=== PATIENT | female | born 1940 | race Caucasian/White ===

== ENCOUNTER 2016-11-30 12:44 | Observation (INO) ==
[2016-11-30 13:23] LABS: MANUAL DIFF NEEDED? NO
--- NOTE | 2016-11-30 13:24 | PROVIDER DOCUMENTATION ---
HPI-Syncope/Dizziness - General Chief Complaint: Syncope Stated Complaint: SYNCOPE/HEAD INJURY Time Seen by Provider: 11/30/16 13:11 Allergies/Adverse Reactions: Patient Allergies Allergy/AdvReac Type Severity Reaction Status Date / Time No Known Allergies Allergy Verified 11/30/16 15:16 Home Medications: Home Medication List Medication Instructions Recorded Confirmed Last Taken Type Levothyroxine [Synthroid] 75 microgm PO DAILY 11/28/12 11/30/16 11/30/16 History Simvastatin [Zocor] 20 mg PO DAILY 11/28/12 11/30/16 11/30/16 History Vitamin E 400 unit PO DAILY 11/28/12 11/30/16 11/30/16 08:00 History Metformin E.r. [Glucophage Xr] 1,000 mg PO BID #0 tablet 12/21/12 11/30/1611/30 08:00 Rx - History of Present Illness-Syncope/Dizzy Nature of Presenting Problem: A 76 y/o F presented after she had syncopal episode at bank and felt backward and hit her head and has small minor laceration, regained conciousness and here for evalaution, denies symptoms prior to fall and no CP/SOB/n/v/d/medina/abdominal pain on HTN meds Prior Episodes: reports: no prior history, single episode today Onset/Duration: reports: 1 hour ago Symptoms prior to episode: reports: none Context: reports: felt faint Loss of Consciousness: brief (seconds) Location of injury. (If syncope resulted in an injury.): reports: head Current Symptoms: reports: none/feels normal Recently Seen Here or By Another Healthcare Provider: No - Dizziness Severity in ED: reports: mild Dizziness Related Current/Associated Symptoms: reports: none/feels normal Any recent trauma/injury?: reports: none Modifying Factors: improves with: nothing Patient usually:: reports: walks without assistance Review of Systems - Adult - REVIEW OF SYSTEMS - ADULT Constitutional: reports: no symptoms reported Eyes: reports: no symptoms reported Ears, Nose, Mouth & Throat: reports: no symptoms reported Cardiovascular: reports: no symptoms reported Respiratory: reports: no symptoms reported Gastrointestinal: reports: no symptoms reported Genitourinary: reports: no symptoms reported Musculoskeletal: reports: no symptoms reported Integumentary: reports: no symptoms reported Neurological: reports: no symptoms reported Psychiatric: reports: no symptoms reported Endocrine: reports: no symptoms reported Hematologic/Lymphatic: reports: no symptoms reported Allergic/Immunologic: reports: no symptoms reported All Other Systems: Reviewed and Negative Past History - Adult - PAST MEDICAL HISTORY-ADULT Review of Records: reports: Old Records Reviewed, Nursing Assessment Review, Medications Reviewed, Social history reviewed & non-contributory. Major Childhood Illnesses: reports: denies history Cardiovascular: reports: denies history Respiratory: reports: denies history Gastrointestinal: reports: denies history Obstetrical/Gynecological: reports: denies history Genitourinary: reports: denies history Musculoskeletal: reports: denies history Neurological: reports: denies history Endocrine/Immune: reports: denies history Other Conditions: reports: denies history - FAMILY HISTORY Family History: reviewed, not pertinent Physical Exam-General - PHYSICAL EXAM-ADULT Initial Vital Signs Reviewed: Yes - CONSTITUTIONAL General Appearance: appears well, no apparent distress - EYES Eyes: PERRL/EOMI, pink conjunctivae - HEAD, EARS, NOSE, MOUTH & THROAT HENMT: moist mucous membranes, normal ENT inspection, TMs normal, pharynx normal , other (1 inch superficial laceration in occipital region) - NECK Neck: non-tender - RESPIRATORY Respiratory: chest non-tender, lungs clear, normal breath sounds, no pleuratic chest pain, no respiratory distress, no accessory muscle use - CARDIOVASCULAR Cardiovascular: normal peripheral pulses, regular rate, rhythm, no edema, no gallop, no JVD, no murmur - GASTROINTESTINAL (ABDOMEN) Abdominal Exam: normal bowel sounds, non tender, soft, no organomegaly - GENITOURINARY Female Genitalia/Pelvic Exam: deferred - MUSCULOSKELETAL Back Exam: normal inspection, no CVA tenderness, no vertebral tenderness Extremity: normal range of motion, non-tender - SKIN Integumentary: normal color, normal turgor - NEUROLOGIC Neurologic: liner helper II-XII nml as tested, grossly normal, no motor/sensory deficits - PSYCHIATRIC Psych/Mental Status: normal mood/affect Progress - PLAN OF CARE/RESULTS Progress/Plan/Lab Results: Laboratory Tests 11/30/16 11/30/16 11/30/16 13:11 13:11 13:11 WBC 10.09 RBC 3.92 L Hgb 12.0 Hct 36.4 L MCV 92.9 MCH 30.6 MCHC 33.0 RDW Std Deviation 13.0 Plt Count 261 MPV 11.0 H Immature Gran % (Auto) 0.0 Neut % (Auto) 74.4 Lymph % (Auto) 14.0 L Fallon % (Auto) 9.0 Eos % (Auto) 2.3 Baso % (Auto) 0.3 Immature Gran # (Auto) 0.00 Neut # (Auto) 7.51 H Lymph # (Auto) 1.41 Fallon # (Auto) 0.91 H Eos # (Auto) 0.23 Baso # (Auto) 0.03 Sodium 133 L Potassium 4.0 Chloride 93 L Carbon Dioxide 24 L Anion Gap 16 BUN 19 Creatinine 1.3 H Estimated GFR/1.73 m2 40 BUN/Creatinine Ratio 15 Glucose 113 H Calculated Osmolality 269 Calcium 8.9 Total Bilirubin 0.89 AST 20 ALT 8 L Alkaline Phosphatase 44 Creatine Kinase 46 Troponin T < 0.010 Total Protein 6.9 Albumin 4.1 Globulin 2.8 Albumin/Globulin Ratio 1.5 Urine Source Urine Color Urine Turbidity Urine pH Ur Specific [place] Urine Protein Ur Glucose (Stick) Ur Ketones (Stick) Urine Blood Urine Nitrite Urine Bilirubin Urobilinogen Dipstick Urine Leukocytes Urine WBC (Auto) Urine RBC (Auto) U Epithel Cells (Auto) Urine Bacteria (Auto) 11/30/16 16:40 WBC RBC Hgb Hct MCV MCH MCHC RDW Std Deviation Plt Count MPV Immature Gran % (Auto) Neut % (Auto) Lymph % (Auto) Fallon % (Auto) Eos % (Auto) Baso % (Auto) Immature Gran # (Auto) Neut # (Auto) Lymph # (Auto) Fallon # (Auto) Eos # (Auto) Baso # (Auto) Sodium Potassium Chloride Carbon Dioxide Anion Gap BUN Creatinine Estimated GFR/1.73 m2 BUN/Creatinine Ratio Glucose Calculated Osmolality Calcium Total Bilirubin AST ALT Alkaline Phosphatase Creatine Kinase Troponin T Total Protein Albumin Globulin Albumin/Globulin Ratio Urine Source CLEAN CATCH Urine Color YELLOW Urine Turbidity CLEAR Urine pH 5.5 Ur Specific [place] 1.009 Urine Protein NEGATIVE Ur Glucose (Stick) NEGATIVE Ur Ketones (Stick) TRACE A Urine Blood SMALL A Urine Nitrite NEGATIVE Urine Bilirubin NEGATIVE Urobilinogen Dipstick NORMAL Urine Leukocytes NEGATIVE Urine WBC (Auto) <10 Urine RBC (Auto) <10 U Epithel Cells (Auto) <10 Urine Bacteria (Auto) NEGATIVE Orders Category Date Time Status ED: Orthostatic Vital Signs (E as directed Care 11/30/16 13:18 Active Transfer to [facility] ORDERED Care 11/30/16 17:06 Active HEAD/C-SPINE W/O CONTRAST [CT] Stat Exams 11/30/16 13:18 Completed CBC WITH ELECTRONIC DIFF [HEME] Stat Lab 11/30/16 13:11 Completed CK PROFILE [SP CHEM] Stat Lab 11/30/16 13:11 Completed COMPREHENSIVE METABOLIC PANEL [CHEM] Stat Lab 11/30/16 13:11 Completed TROPONIN T Stat Lab 11/30/16 13:11 Completed URINALYSIS [URINALYSIS] Stat Lab 11/30/16 16:40 Completed 0.9% Sodium Chloride Inj [Ns] 1,000 ml Med 11/30/16 15:02 Discontinued IV 999 mls/hr EKG [EKG] Stat Ther 11/30/16 13:01 Draft Vital Signs Temp Pulse Pulse Pulse Pulse Resp BP 11/30/16 16:01 82 86 79 11/30/16 12:48 98.1 F 80 20 146/62 BP BP BP Pulse Ox 11/30/16 16:01 128/57 108/37 135/51 11/30/16 12:48 100 No Known Allergies Allergy (Verified 11/30/16 15:16) Levothyroxine [Synthroid] 75 microgm PO DAILY 11/28/12 Simvastatin [Zocor] 20 mg PO DAILY 11/28/12 Vitamin E 400 unit PO DAILY 11/28/12 Metformin E.r. [Glucophage Xr] 1,000 mg PO BID #0 tablet 12/21/12 Laboratory 11/30/16 11/30/16 11/30/16 16:40 13:11 13:11 WBC RBC Hgb Hct MCV MCH MCHC RDW Std Deviation Plt Count MPV Immature Gran % (Auto) Neut % (Auto) Lymph % (Auto) Fallon % (Auto) Eos % (Auto) Baso % (Auto) Immature Gran # (Auto) Neut # (Auto) Lymph # (Auto) [place] # (Auto) Eos # (Auto) Baso # (Auto) Sodium 133 L Potassium 4.0 Chloride 93 L Carbon Dioxide 24 L Anion Gap 16 BUN 19 Creatinine 1.3 H Estimated GFR/1.73 m2 40 BUN/Creatinine Ratio 15 Glucose 113 H Calculated Osmolality 269 Calcium 8.9 Total Bilirubin 0.89 AST 20 ALT 8 L Alkaline Phosphatase 44 Creatine Kinase 46 Troponin T < 0.010 Total Protein 6.9 Albumin 4.1 Globulin 2.8 Albumin/Globulin Ratio 1.5 Urine Source CLEAN CATCH Urine Color YELLOW Urine Turbidity CLEAR Urine pH 5.5 Ur Specific [place] 1.009 Urine Protein NEGATIVE Ur Glucose (Stick) NEGATIVE Ur Ketones (Stick) TRACE A Urine Blood SMALL A Urine Nitrite NEGATIVE Urine Bilirubin NEGATIVE Urobilinogen Dipstick NORMAL Urine Leukocytes NEGATIVE Urine WBC (Auto) <10 Urine RBC (Auto) <10 U Epithel Cells (Auto) <10 Urine Bacteria (Auto) NEGATIVE 11/30/16 13:11 WBC 10.09 RBC 3.92 L Hgb 12.0 Hct 36.4 L MCV 92.9 MCH 30.6 MCHC 33.0 RDW Std Deviation 13.0 Plt Count 261 MPV 11.0 H Immature Gran % (Auto) 0.0 Neut % (Auto) 74.4 Lymph % (Auto) 14.0 L [place] % (Auto) 9.0 Eos % (Auto) 2.3 Baso % (Auto) 0.3 Immature Gran # (Auto) 0.00 Neut # (Auto) 7.51 H Lymph # (Auto) 1.41 [place] # (Auto) 0.91 H Eos # (Auto) 0.23 Baso # (Auto) 0.03 Sodium Potassium Chloride Carbon Dioxide Anion Gap BUN Creatinine Estimated GFR/1.73 m2 BUN/Creatinine Ratio Glucose Calculated Osmolality Calcium Total Bilirubin AST ALT Alkaline Phosphatase Creatine Kinase Troponin T Total Protein Albumin Globulin Albumin/Globulin Ratio Urine Source Urine Color Urine Turbidity Urine pH Ur Specific [place] Urine Protein Ur Glucose (Stick) Ur Ketones (Stick) Urine Blood Urine Nitrite Urine Bilirubin Urobilinogen Dipstick Urine Leukocytes Urine WBC (Auto) Urine RBC (Auto) U Epithel Cells (Auto) Urine Bacteria (Auto) - EKG 1 Time of EKG reading by physician:: 13:26 [place]: normal QRS: normal HI Interval: normal ST Wave: non-specific ST changes Prior EKG Comparison: changes noted (non) - CT/MRI 1 CT Study: Cervical Spine, Head Impression: Normal, See EMR Report - CONSULTS/PCP/HOSPITALIST Notification #1 *Consult/PCP/Hospitalist*: Dr Merlos Time Discussed: 17:08 Consult Disposition: Admit (to [facility]) Departure - Departure Time of Disposition Order: 17:08 DIAGNOSIS: Unstable angina Syncope Qualifiers: Syncope type: unspecified Qualified Code(s): R55 - Syncope and collapse Disposition: ADMITTED INPATIENT 09 Certified Medical Emergency: Emergent Condition: Fair
[2016-11-30 13:26] LABS: BASO% 0.3 % (0.0-0.8); EOS# 0.23 X1000 (0.0-0.7); EOS% 2.3 % (0.0-10.0); HEMATOCRIT 36.4 % (37.0-47.0); LYMPH# 1.41 X1000 (1.2-3.4); MCH 30.6 PG (27-31); MCV 92.9 FL (81-99); MONO# 0.91 X1000 (0.11-0.59); NEUT% 74.4 % (42.2-75.2); PLT 261 X1000 (130-400); RBC 3.92 XMIL (4.2-5.4)
--- NOTE | 2016-11-30 13:40 | EKG Report ---
Test Performed on : 11/30/2016 1:04:35 PM Test Reason : syncope Blood Pressure : / mmHG Vent. Rate : 082 BPM Atrial Rate : 082 BPM P-R Int : 128 ms QRS Dur : 076 ms QT Int : 394 ms P-R-T Axes : 111 008 063 degrees QTc Int : 460 ms Normal sinus rhythm. Low voltage QRS Nonspecific T wave abnormality Abnormal ECG When compared with ECG of 28-NOV-2012 02:34, premature ventricular complexes. are no longer present Nonspecific T wave abnormality now evident in Lateral leads Unconfirmed Result
[2016-11-30 13:45] LABS: ALBUMIN 4.1 g/dL (3.5-5.0); CALCIUM 8.9 mg/dL (8.8-10.2); TOTAL BILIRUBIN 0.89 mg/dL (0.20-1.00); TOTAL PROTEIN 6.9 g/dL (6.3-8.3)
--- NOTE | 2016-11-30 14:21 | Diag Imaging Result Document ---
PROCEDURE NAME: HEAD/C-SPINE W/O CONTRAST - 11/30/2016 CT BRAIN AND CERVICAL SPINE WITHOUT CONTRAST: FINDINGS: No parenchymal hemorrhage. No epidural or subdural hematoma. No subarachnoid hemorrhage. No skull fracture. No mass identified on this noncontrasted exam. No hydrocephalus. No sinus opacification. IMPRESSION: No hemorrhage. No injury. CT CERVICAL SPINE WITHOUT CONTRAST: FINDINGS: There is good alignment to the cervical spine. There are mild degenerative bone spurs at C6-7. No precervical soft tissue swelling. No subluxation. No fracture. IMPRESSION: No acute bony injury. A preliminary report was given at 2:08 p.m.
[2016-11-30] MEDS ORDERED: NS 1,000 ML IV ONE (15:02)
[2016-11-30 16:54] LABS: URINE MICRO REVIEW NEEDED? NO; URINE SOURCE CLEAN CATCH
[2016-11-30 17:02] LABS: BILIRUBIN URINE NEGATIVE (NEGATIVE); BLOOD URINE SMALL (NEGATIVE); COLOR YELLOW; GLUCOSE URINE NEGATIVE (NEGATIVE); LEUKOCYTES URINE NEGATIVE (NEGATIVE); NITRITE URINE NEGATIVE (NEGATIVE); PH URINE 5.5; PROTEIN URINE NEGATIVE (NEGATIVE); SP GRAVITY URINE 1.009; TURBIDITY URINE CLEAR (CLEAR); UR EPITHELIAL CELLS <10 /HPF (<10); URINE BACTERIA NEGATIVE /HPF; URINE RBC <10 /HPF (<10); URINE WBC <10 /HPF (<10); UROBILINOGEN URINE NORMAL (NORMAL)
[2016-11-30] MEDS: NS 1,000 ML IV SCH (21:05)
[2016-11-30] MEDS: GLUCOPHAGE XR PO SCH (21:39)
--- NOTE | 2016-11-30 22:00 | EKG Report ---
Test Performed on : 11/30/2016 9:38:48 PM Test Reason : re-check; angina Blood Pressure : / mmHG Vent. Rate : 084 BPM Atrial Rate : 084 BPM P-R Int : 150 ms QRS Dur : 082 ms QT Int : 376 ms P-R-T Axes : 057 021 035 degrees QTc Int : 444 ms Sinus rhythm. with occasional premature ventricular complexes. Low voltage QRS Borderline ECG When compared with ECG of 30-NOV-2016 13:04, (Unconfirmed) premature ventricular complexes. are now present Nonspecific T wave abnormality no longer evident in Inferior leads Unconfirmed Result
[2016-12-01] MEDS ORDERED: SYNTHROID PO SCH (09:00)
[2016-12-01] MEDS ORDERED: ZOCOR PO SCH (09:00)
[2016-12-01] MEDS: NS 1,000 ML IV SCH ×2 (09:41→16:30)
[2016-12-01] MEDS: VITAMIN E PO SCH (09:43)
[2016-12-01] MEDS: GLUCOPHAGE XR PO SCH ×2 (09:43→20:06)
[2016-12-01] MEDS ORDERED: XANAX PO ONE (17:20)
[2016-12-01] MEDS ORDERED: XANAX PO PRN (23:00)
[2016-12-02] MEDS: NS 1,000 ML IV SCH (04:11)
[2016-12-02] MEDS ORDERED: SYNTHROID PO SCH (07:15)
[2016-12-02] MEDS ORDERED: GLUCOPHAGE XR PO SCH (08:00)
[2016-12-02] MEDS: VITAMIN E PO SCH (08:03)
--- NOTE | 2016-12-02 15:11 | Diag Imaging Result Document ---
PROCEDURE NAME: MYOCARDIAL PERF SCAN, STR/REST - 12/02/2016 TEST: Myocardial perfusion scan result. INDICATION FOR THE STUDY: Syncope. PROCEDURES PERFORMED: 1. One-day stress rest myocardial perfusion imaging. 2. George protocol stress (results dictated separately by primary physician). PROCEDURE IN DETAIL: Ms. Kilgore was brought to the nuclear laboratory and had a resting study with injection of 12.2 mCi of technetium-99m sestamibi with usual imaging protocol utilized. She subsequently was brought back and had a George protocol stress. At peak stress, was injected with 33.7 mCi of technetium-99m sestamibi with usual imaging protocol utilized. FINDINGS: 1. No evidence of abnormal extracardiac uptake. 2. TID ratio 0.91. 3. Perfusion imaging demonstrates a small sized mild intensity fixed defect located in the apex. There does not appear to be any reversibility consistent with ischemia. 4. Normal ejection fraction of 76%. End-diastolic volume 85, end-systolic volume of 20 and normal wall motion.
[2016-12-02 16:00] VITALS: BP 132/50
[2016-12-02] MEDS ORDERED: ZOCOR PO SCH (21:00)
--- NOTE | 2016-12-28 21:48 | HISTORY AND PHYSICAL ---
HISTORY OF PRESENT ILLNESS: Penny Kilgore was admitted 12/10 after presenting to the emergency room stating that she had a syncopal attack while standing in line at the bank. Unfortunately there was nobody behind her, she fell backwards and hit her head. Has a small minor laceration, regained consciousness and here now in the ER for an evaluation. She denies symptoms prior to the fall, particularly denies chest pain, shortness of breath, nausea, vomiting, headache, belly pain. She has a history of hypertension. This happened about an hour prior to presenting to the ER. She said she felt faint walking in there and began feeling somewhat lightheaded before she fell. ALLERGIES: She has no allergies. MEDICATIONS: Synthroid 75 mcg. Zocor 20. Vitamin E 400 units daily. Metformin extended release 1000 mg twice a day. PAST MEDICAL HISTORY: She has no history of ischemic heart disease. She has only had the thyroid replacement therapy. REVIEW OF SYSTEMS: Constitutional: She denies any preceding fever, chills, night sweats, sweats, significant weight gain or weight loss. Eyes: No change in her visual field. No cataracts. No field cuts. Ears, nose, eyes and throat: No pharyngitis, otitis or sinusitis. Cardiovascular: She denies any history of any preceding palpitations. No chest pain, arm pain or jaw pain. No tachy or Tyree palpitations. Respiratory: She denies any shortness of breath or wheezing. Gastrointestinal: No nausea, vomiting, diarrhea, constipation, belly pain, prior to her passing out. Genitourinary: No dysuria, hematuria, polyuria, or pyuria. Musculoskeletal: No joint aches, muscle aches. Skin: No rash or lesions identified. Neurological: No preceding visual field scintillations or strange odors. No seizure activity. No headache. No dysarthria. Never had a TIA. Psychiatric: Mild history of dementia we suspect. Endocrine: No polyuria, polydipsia, heat or cold intolerance. Hematological: No clotting or bleeding disorder. Allergies: No asthma, eczema or hay fever. DATABASE INCLUDES THE FOLLOWING: She had a white count of 10,000, hematocrit of 36.4, platelet count of 261,000. Normal differential, potassium sodium 133, potassium 4, chloride 93, CO2 24, BUN 19, creatinine 1.3. GFR 40. Glucose 113, calcium 8.9, bilirubin 0.89. AST 20, ALT 8, alkaline phosphatase 44, CK 46, troponin less than 0.01. Total protein 6.9, albumin 4.1, globulin 2.8, urinalysis specific gravity, small amount of blood, otherwise negative. In the ER, she had a CT of the cervical spine and head that was negative. She had an EKG which was nonspecific ST-segment changes. She was admitted to the hospital for syncope and collapse with a history of mild dementia on thyroid, dyslipidemia and diabetes. PHYSICAL EXAMINATION: VITAL SIGNS: At the time of admission, her blood pressure was 146/62, pulse was 80, respiratory 28, temperature was 98.1 degrees, O2 saturation was 100. HEENT: Head was normocephalic. Eyes were PERRLA. EOMs intact. Sclerae clear. Fundi were benign. Nares patent. Oropharynx negative. NECK: Supple. Bounding carotids without thyromegaly. She had a contusion on the back of her head. Midline trachea. CHEST: Clear bilaterally. CARDIOVASCULAR: Regular rhythm rate. No murmurs, gallops, clicks, or rubs. ABDOMEN: Soft, but without hepatosplenomegaly. No CVA tenderness. EXTREMITIES: Negative for clubbing, cyanosis, or edema. ASSESSMENT AND PLAN: She was admitted for syncope and collapse. History of diabetes. History of dyslipidemia and history of thyroid replacement.
--- NOTE | 2016-12-29 06:52 | DISCHARGE SUMMARY ---
ADMISSION DATE: 11/30/2016 DISCHARGE DATE: 12/02/2016 HISTORY: A 76-year-old female who has a history of dyslipidemia and diabetes treated with metformin and thyroid hormone replacement who while standing in line at the bank felt lightheaded and subsequently fell backwards hitting her head. No loss of consciousness but had a laceration and maceration on the back of her head. Her database here included the following imaging. She had a head and cervical spine film. The head showed no hemorrhages and no injury. The CT of the spine normal bony structures and no bony injury. She had a myocardial perfusion scan done on 12/02 and is in part working up her syncope. The test revealed no evidence of abnormal extra cardiac uptake. Normal ejection fraction of 76%. End-diastolic volume 85 and systolic volume 20. Normal wall motion. Perfusion images demonstrate a small size mild intensity fixed defect located in the apex. There does not appear to be any reversibility consistent with ischemia. Her EKGs showed a normal sinus rhythm, low voltage, and nonspecific T-wave abnormalities. Followup EKG showed no evolution of those findings. Laboratory Data: Her blood sugars were monitored and all within the 100s. Urinalysis was negative for infection and tested positive for a small amount of blood with less than 10 RBCs. During the hospital stay, she had a noticeable orthostatic component to her blood pressure with her supine reading 67 pulse. 117/42 blood pressure. Her standing blood pressure was 120/59, pulse 83. She seemed during this hospitalization somewhat confused. She normally drives herself to the office and seems appropriate, but clearly she was a bit off in a strange environment, and might be foretelling of some dementia features. She was discharged. We will follow her up in the office. She was discharged with following diagnoses. DISCHARGE DIAGNOSES: 1. Syncopal episode. 2. Orthostatic vital signs. 3. Closed head trauma. 4. Thyroid hormone replacement. 5. Type 2 diabetes. 6. Dyslipidemia.
== END 2016-12-02 17:00 | disposition home or self-care (01) ==
LOC: ED 12:44 → P.MEDSURG 18:44
PROVIDERS: ADMIT Internal Medicine; ATTEND Internal Medicine
DX: R55 Syncope and collapse (principal); E11.9 Type 2 diabetes mellitus without complications; E78.5 Hyperlipidemia, unspecified; E07.9 Disorder of thyroid, unspecified; S01.01XA Laceration without foreign body of scalp, initial encounter; Z79.899 Other long term (current) drug therapy; Z79.84 Long term (current) use of oral hypoglycemic drugs; W19.XXXA Unspecified fall, initial encounter
CPT/HCPCS: 36415; 70450; 72125; 78452; 80053; 81001; 82550; 82948; 84484; 85025; 93005; 93017; 96360; 96361; A9500; G0378; J7030

== ENCOUNTER 2017-01-11 17:19 | Emergency (ER) ==
[2017-01-11] MEDS ORDERED: ASPIRIN PO STA (17:31)
[2017-01-11] MEDS ORDERED: NITROGLYCERIN SL PRN (17:31)
[2017-01-11 17:50] LABS: MANUAL DIFF NEEDED? NO
[2017-01-11 18:00] LABS: BASO% 0.4 % (0.0-0.8); EOS# 0.21 X1000 (0.0-0.7); EOS% 2.2 % (0.0-10.0); HEMATOCRIT 34.6 % (37.0-47.0); HEMOGLOBIN 11.4 g/dL (12.0-16.0); IMM GRAN# 0.02 X1000 (0.0-0.04); IMM GRAN% 0.2 % (0.0-0.5); LYMPH# 3.14 X1000 (1.2-3.4); LYMPH% 33.1 % (20.5-51.1); MCHC 32.9 g/dL (33-37); MONO# 0.84 X1000 (0.11-0.59); MONO% 8.8 % (1.7-9.3); MPV 10.8 FL (7.4-10.4); NEUT% 55.3 % (42.2-75.2); PLT 292 X1000 (130-400); RBC 3.68 XMIL (4.2-5.4)
[2017-01-11 18:09] LABS: INR 1.04; PTT 24.7 Seconds (22.0-36.0)
--- NOTE | 2017-01-11 18:28 | PROVIDER DOCUMENTATION ---
HPI-Chest Pain <Sara Hernández - Last Filed: 01/11/17 18:44> - General Source: patient - History of Present Illness-CP Location: reports: epigastric Chest Pain Radiation: reports: no radiation Quality of Pain: reports: sharp Severity in ED: mild Onset/Duration: 1 hour ago Timing: gone now, intermittent Context/Activities at Onset: denies: light activity, moderate activity, vigorous activity, recent emotional stress, recent physical stress, recent trauma history, possible bad food, cold exposure, eating, out of country travel , rest, sleep <Gina Foss - Last Filed: 01/11/17 19:28> - General Chief Complaint: Chest Pain Stated Complaint: CHEST PAIN Time Seen by Provider: 01/11/17 18:22 Allergies/Adverse Reactions: Patient Allergies Allergy/AdvReac Type Severity Reaction Status Date / Time No Known Allergies Allergy Verified 12/14/16 14:40 Home Medications: Home Medication List Medication Instructions Recorded Confirmed Last Taken Type Levothyroxine [Synthroid] 75 microgm PO DAILY 11/28/12 12/14/16 12/14/16 History Simvastatin [Zocor] 20 mg PO DAILY 11/28/12 12/14/16 12/14/16 History Vitamin E 400 unit PO DAILY 11/28/12 12/14/16 12/13/16 History Metformin E.r. [Glucophage Xr] 1,000 mg PO BID #0 tablet 12/21/12 12/14/1612/14 Rx Valsartan/Hydrochlorothiazide 1 each PO DAILY #0 12/02/16 12/14/16 12/14/16 Rx [Valsartan-Hctz 160-12.5 mg Tab] Nitrofurantoin Kendall/Macrocryst 100 mg PO BID #20 capsule 12/14/16 Unknown Rx [Macrobid] - History of Present Illness-CP Nature of Presenting Problem: 76 y/o WF c/o substernal chest pain that has been intermittent. States pain was just 3-4 small jolts of pain. Not currently having them. Denies sob. Denies history of heart disease- had heart cath and stress test "not long ago." Does not remember when she had it. States she has been having a lot of family problems lately and it could be related to anxiety. Denies cough, fever. Had stress test done in November of this year which was unremarkable; this was while she was hospitalized for syncopal episode. Denies leg pain recently ( Gina Foss) Review of Systems - Adult - REVIEW OF SYSTEMS - ADULT Constitutional: reports: no symptoms reported. denies: chills, fever, fatique Eyes: reports: no symptoms reported. denies: decreased vision, blurred vision, double vision, eye pain Ears, Nose, Mouth & Throat: reports: no symptoms reported. denies: ear pain, nose pain, throat pain Cardiovascular: reports: see HPI, chest pain. denies: irregular heart rate, palpitations Respiratory: reports: no symptoms reported. denies: cough, shortness of breath , wheezing Gastrointestinal: reports: no symptoms reported. denies: abdominal pain, diarrhea, nausea, vomiting Genitourinary: reports: no symptoms reported. denies: dysuria, discharge, frequency, incontinence Musculoskeletal: reports: no symptoms reported. denies: muscle aches Integumentary: reports: no symptoms reported Neurological: reports: no symptoms reported. denies: dizziness/vertigo, headache/migraines Psychiatric: reports: no symptoms reported Endocrine: reports: no symptoms reported Hematologic/Lymphatic: reports: no symptoms reported Allergic/Immunologic: reports: no symptoms reported All Other Systems: Reviewed and Negative <Gina Foss - Last Filed: 01/11/17 19:28> Past History - Adult - PAST MEDICAL HISTORY-ADULT Review of Records: reports: Old Records Reviewed, Nursing Assessment Review, Medications Reviewed Major Childhood Illnesses: reports: denies history Cardiovascular: reports: HTN, hyperlipidemia Respiratory: reports: denies history Gastrointestinal: reports: GERD Obstetrical/Gynecological: reports: denies history Genitourinary: reports: denies history Musculoskeletal: reports: denies history Neurological: reports: denies history Endocrine/Immune: reports: Diabetes, thyroid disorder Other Conditions: reports: denies history - IMMUNIZATION STATUS Childhood Immunizations: See Nurse Assessment Flu Vaccine: See Nurse Assessment - FAMILY HISTORY Family History: reviewed, not pertinent - SOCIAL HISTORY Smoking: denies Substance Use: none/never Alcohol Use Frequency: never <Gina Foss - Last Filed: 01/11/17 19:28> Physical Exam-General - PHYSICAL EXAM-ADULT Initial Vital Signs Reviewed: Yes - CONSTITUTIONAL General Appearance: appears well, alert, no apparent distress - EYES Eyes: PERRL/EOMI, pink conjunctivae - HEAD, EARS, NOSE, MOUTH & THROAT HENMT: normocephalic/atraumatic, moist mucous membranes - NECK Neck: non-tender, full range of motion, supple, normal inspection. negative: lymphadenopathy - RESPIRATORY Respiratory: chest non-tender, lungs clear, normal breath sounds, no pleuratic chest pain, no respiratory distress, no accessory muscle use. negative: respiratory distress, decreased breath sounds, accessory muscle use, crackles, rales, rhonchi, wheezing - CARDIOVASCULAR Cardiovascular: normal peripheral pulses, regular rate, rhythm, no edema, no gallop, no murmur - GASTROINTESTINAL (ABDOMEN) Abdominal Exam: normal bowel sounds, non tender, soft, no organomegaly, no pulsatile mass. negative: abdominal bruit, abnormal bowel sounds, distended, guarding, rigid, rebound, tenderness - MUSCULOSKELETAL Extremity: normal range of motion, non-tender, normal gait - SKIN Integumentary: normal color, normal turgor, warm/dry - NEUROLOGIC Neurologic: grossly normal, no motor/sensory deficits - PSYCHIATRIC Psych/Mental Status: normal mood/affect, normal thought content, normal thought process, oriented x 3 <Gina Foss - Last Filed: 01/11/17 19:28> Progress - EKG 1 Time of EKG reading by physician:: 17:26 EKG Read and Signed by:: Antonio Travis EKG Interpretation (*Must complete 3 of following elements*): Normal Rate: 82 Rhythm: NSR Greenback: normal <Sara Hernández - Last Filed: 01/11/17 18:44> <Gina Foss - Last Filed: 01/11/17 19:28> - PLAN OF CARE/RESULTS Progress/Plan/Lab Results: Vital Signs Temp Pulse Resp BP Pulse Ox 01/11/17 17:29 98.0 F 85 20 149/62 100 No Known Allergies Allergy (Verified 12/14/16 14:40) Levothyroxine [Synthroid] 75 microgm PO DAILY 11/28/12 Simvastatin [Zocor] 20 mg PO DAILY 11/28/12 Vitamin E 400 unit PO DAILY 11/28/12 Metformin E.r. [Glucophage Xr] 1,000 mg PO BID #0 tablet 12/21/12 Valsartan/Hydrochlorothiazide [Valsartan-Hctz 160-12.5 mg Tab] 1 each PO DAILY # 0 12/02/16 Nitrofurantoin Kendall/Macrocryst [Macrobid] 100 mg PO BID #20 capsule 12/14/16 Laboratory 01/11/17 01/11/17 01/11/17 17:35 17:35 17:35 WBC RBC Hgb Hct MCV MCH MCHC RDW Std Deviation Plt Count MPV Immature Gran % (Auto) Neut % (Auto) Lymph % (Auto) Kendall % (Auto) Eos % (Auto) Baso % (Auto) Immature Gran # (Auto) Neut # (Auto) Lymph # (Auto) Kendall # (Auto) Eos # (Auto) Baso # (Auto) PT 11.0 INR 1.04 PTT (Actin FS) 24.7 D-Dimer Sodium Potassium Chloride Carbon Dioxide Anion Gap BUN Creatinine Estimated GFR/1.73 m2 BUN/Creatinine Ratio Glucose Calculated Osmolality Calcium Magnesium Total Bilirubin AST ALT Alkaline Phosphatase Creatine Kinase Troponin T < 0.010 [id number] Pept 139 Total Protein Albumin Globulin Albumin/Globulin Ratio 01/11/17 01/11/17 01/11/17 17:35 17:35 17:35 WBC 9.50 RBC 3.68 L Hgb 11.4 L Hct 34.6 L MCV 94.0 MCH 31.0 MCHC 32.9 L RDW Std Deviation 13.8 Plt Count 292 MPV 10.8 H Immature Gran % (Auto) 0.2 Neut % (Auto) 55.3 Lymph % (Auto) 33.1 Kendall % (Auto) 8.8 Eos % (Auto) 2.2 Baso % (Auto) 0.4 Immature Gran # (Auto) 0.02 Neut # (Auto) 5.25 Lymph # (Auto) 3.14 Kendall # (Auto) 0.84 H Eos # (Auto) 0.21 Baso # (Auto) 0.04 PT INR PTT (Actin FS) D-Dimer 0.98 H Sodium 139 Potassium 4.0 Chloride 101 Carbon Dioxide 23 L Anion Gap 15 BUN 12 Creatinine 0.9 Estimated GFR/1.73 m2 > 60 BUN/Creatinine Ratio 13 Glucose 97 Calculated Osmolality 277 Calcium 9.0 Magnesium 1.4 L Total Bilirubin 0.58 AST 17 ALT 7 L Alkaline Phosphatase 52 Creatine Kinase 24 Troponin T [id number]-Eegaamfipjz Pept Total Protein 6.3 Albumin 4.0 Globulin 2.3 Albumin/Globulin Ratio 1.7 Orders Category Date Time Status Cardiac Monitoring DIRECTED Care 01/11/17 17:31 Active Saline Loc NOW Care 01/11/17 17:31 Active CHEST-2 VIEWS [RAD] Stat Exams 01/11/17 17:31 Taken CBC WITH ELECTRONIC DIFF [HEME] Stat Lab 01/11/17 17:35 Completed CK PROFILE [SP CHEM] Stat Lab 01/11/17 17:35 Completed COMPREHENSIVE METABOLIC PANEL [CHEM] Stat Lab 01/11/17 17:35 Completed D-DIMER [CHEM] Stat Lab 01/11/17 17:35 Completed MAGNESIUM [CHEM] Stat Lab 01/11/17 17:35 Completed PRO B-NATRIURETIC PEPTIDE Stat Lab 01/11/17 17:35 Completed PROTIME WITH INR [COAG] Stat Lab 01/11/17 17:35 Completed PTT [COAG] Stat Lab 01/11/17 17:35 Completed TROPONIN T Stat Lab 01/11/17 17:35 Completed Aspirin Med 01/11/17 17:31 Discontinued 325 mg PO STAT STA Nitroglycerin Sl [Nitroglycerin] Med 01/11/17 17:31 Active 0.4 mg SL Q5M PRN PRN EKG [EKG] Stat Ther 01/11/17 17:26 Ordered Well's criteria for PE less than 2. Discussed patient with Dr. Travis, agrees with treatment, disposition and plan. (Gina Foss) Departure <Sara Hernández - Last Filed: 01/11/17 18:44> - Departure Time of Disposition Order: 19:27 Certified Medical Emergency: Emergent <Gina Foss - Last Filed: 01/11/17 19:28> - Departure DIAGNOSIS: Atypical chest pain, Elevated d-dimer Disposition: HOME 01 Condition: Stable Additional Instructions: Follow up with your primary care physician this week. ED Follow Up Instructions: You have been treated by a care provider in the Emergency Department. These instructions are being provided to you so you can have an understanding of how to care for yourself upon discharge. Upon discharge from the Emergency Department, you are responsible for making arrangements for follow-up care by a physician of your choice. Take all prescribed medications as directed. Return to the Emergency Department immediately for any new or worsening symptoms. You may call the Physician Referral phone number at [phone] to obtain a list of Physicians who are taking new patients. Physician Attestation
[2017-01-11 18:40] LABS: AGAP 15; ALKALINE PHOSPHATASE 52 U/L (32-104); BUN 12 mg/dL (8-22); CHLORIDE 101 mmol/L (98-107); CK PROFILE 24 U/L (24-173); COSMO 277; GOT 17 U/L (10-30); GPT 7 U/L (10-36); MAGNESIUM 1.4 mg/dL (1.5-2.7); SODIUM 139 mmol/L (136-145); TCO2 23 mmol/L (25-35); TOTAL BILIRUBIN 0.58 mg/dL (0.20-1.00); TOTAL PROTEIN 6.3 g/dL (6.3-8.3)
[2017-01-11 19:34] VITALS: BP 185/95
--- NOTE | 2017-01-12 05:20 | EKG Report ---
Test Performed on : 01/11/2017 5:26:11 PM Test Reason : CP Blood Pressure : / mmHG Vent. Rate : 082 BPM Atrial Rate : 082 BPM P-R Int : 140 ms QRS Dur : 080 ms QT Int : 390 ms P-R-T Axes : 054 004 019 degrees QTc Int : 455 ms Normal sinus rhythm. Normal ECG When compared with ECG of 14-DEC-2016 13:14, Nonspecific T wave abnormality, improved in Inferior leads Nonspecific T wave abnormality no longer evident in Anterolateral leads QT has shortened Unconfirmed Result
--- NOTE | 2017-01-12 07:52 | Diag Imaging Result Document ---
PROCEDURE NAME: CHEST-2 VIEWS - 01/11/2017 FRONTAL AND LATERAL CHEST, TWO VIEWS: COMPARISON: 12/19/2012. FINDINGS: The lungs are hyperexpanded. The heart is not enlarged. The pulmonary vessels are small. No effusions. No pneumonia. No free air beneath the diaphragm. IMPRESSION: The patient may have emphysema. No other acute abnormality.
== END 2017-01-11 19:45 | disposition home or self-care (01) ==
LOC: ED 17:19
DX: R07.89 Other chest pain (principal); R79.1 Abnormal coagulation profile; I10 Essential (primary) hypertension; E78.5 Hyperlipidemia, unspecified; E11.9 Type 2 diabetes mellitus without complications; E07.9 Disorder of thyroid, unspecified; Z79.899 Other long term (current) drug therapy
CPT/HCPCS: 71020; 80053; 82550; 83735; 83880; 84484; 85025; 85379; 85610; 85730; 93005

== ENCOUNTER 2017-04-04 22:05 | Inpatient (IN) ==
--- NOTE | 2017-04-05 00:54 | PROVIDER DOCUMENTATION ---
HPI-Abdominal Pain/GI Problem - General Chief Complaint: Constipation Stated Complaint: ABD PAIN Time Seen by Provider: 04/05/17 00:49 Source: patient Allergies/Adverse Reactions: Patient Allergies Allergy/AdvReac Type Severity Reaction Status Date / Time No Known Allergies Allergy Verified 04/05/17 02:42 Home Medications: Home Medication List Medication Instructions Recorded Confirmed Last Taken Type Levothyroxine [Synthroid] 50 microgm PO QAM 11/28/12 04/05/17 04/04/17 08:00 History Simvastatin [Zocor] 20 mg PO QHS 11/28/12 04/05/17 04/03/17 History Metformin E.r. [Glucophage Xr] 1,000 mg PO BID #0 tablet 12/21/12 04/05/1704/04 08:00 Rx LISINOpril [Prinivil] 10 mg PO QAM 04/05/17 04/05/17 04/04/17 08:00 History Valsartan/Hydrochlorothiazide 1 each PO QAM 04/05/17 04/05/17 04/04/17 08:00 History [Valsartan-Hctz 160-12.5 mg Tab] - History of Present Illness-ABD Nature of Presenting Problems: 76 YO WF presents with sharp lower abdominal/rectal pain since this morning. Has since resolved after being in the ED. Had one bout of diarrhea today; no blood in stool, no change in urination, no fever, chest pain or SOB, no N/V. Says she has a lot of gas. Feels fine now. Abdominal Pain Onset Location: reports: RLQ, LLQ, suprapubic Pain Radiation: reports: no radiation Quality of Pain: reports: none Severity in ED: denies: mild, moderate, severe Onset/Duration: reports: this morning Timing: reports: gone now Activities at Onset: reports: none Exposure to sick contacts?: No Modifying Factors: improves with: nothing Associated Symptoms: reports: diarrhea (one bout of diarrhea, watery). denies: arm pain, back/neck pain, chest pain, constipation, cough, diaphoresis, dizziness, EENT symptoms, fatigue, fever/chills, genitourinary problems, headaches, joint pain, muscle aches, sinus congestion/drainage, nausea, rash, shortness of breath, pain with inspiration, syncope, vomiting, weakness Last BM: this afternoon Dark Stools Present?: reports: none noticed Rectal Bleeding: reports: none # of Diarrhea Episodes: 1 Rectal Pain: reports: other (says feels like "a stick in her rectum") # of Vomiting Episodes: 0 Bruising or Bleeding Gums?: No Similar Symptoms Previously?: No Recently seen or treated by another doctor?: No Review of Systems - Adult - REVIEW OF SYSTEMS - ADULT Constitutional: denies: chills, fever Eyes: denies: decreased vision, blurred vision, double vision Ears, Nose, Mouth & Throat: denies: ear pain, epistaxis Cardiovascular: denies: chest pain, syncope Respiratory: denies: cough, shortness of breath, wheezing Gastrointestinal: reports: diarrhea. denies: hematemesis, nausea, vomiting Genitourinary: denies: dysuria, discharge, frequency, flank pain, frequent UTI's , hematuria, urgency Musculoskeletal: denies: bone pain, back pain, joint pain, joint swelling, neck pain Integumentary: denies: itching, rash Neurological: denies: dizziness/vertigo, headache/migraines Hematologic/Lymphatic: denies: blood clots, easy bruising Past History - Adult - PAST MEDICAL HISTORY-ADULT Review of Records: reports: Old Records Reviewed, Nursing Assessment Review, Medications Reviewed Major Childhood Illnesses: reports: denies history Cardiovascular: reports: HTN, hyperlipidemia Respiratory: reports: denies history Gastrointestinal: reports: GERD Obstetrical/Gynecological: reports: denies history Genitourinary: reports: denies history Musculoskeletal: reports: denies history Neurological: reports: denies history Endocrine/Immune: reports: Diabetes, thyroid disorder Other Conditions: reports: denies history - PRIOR SURGERIES/PROCEDURES Surgical/Procedure History: reports: hysterectomy, orthopedic (extremity) - IMMUNIZATION STATUS Childhood Immunizations: See Nurse Assessment Flu Vaccine: See Nurse Assessment - FAMILY HISTORY Family History: reviewed, not pertinent Physical Exam-General - PHYSICAL EXAM-ADULT Initial Vital Signs Reviewed: Yes - CONSTITUTIONAL General Appearance: appears well, alert, no apparent distress - EYES Eyes: PERRL/EOMI, pink conjunctivae. negative: sclera injected, scleral icterus - HEAD, EARS, NOSE, MOUTH & THROAT HENMT: normocephalic/atraumatic, moist mucous membranes - NECK Neck: full range of motion, supple, normal inspection - RESPIRATORY Respiratory: chest non-tender, lungs clear, normal breath sounds, no pleuratic chest pain, no respiratory distress, no accessory muscle use. negative: crackles, rales, rhonchi, stridor, wheezing - CARDIOVASCULAR Cardiovascular: regular rate, rhythm, no edema, no gallop, no JVD, no murmur, tachycardia. negative: bradycardia - GASTROINTESTINAL (ABDOMEN) Abdominal Exam: non tender, soft, no organomegaly, no pulsatile mass. negative : abdominal bruit, distended, guarding, rigid, rebound, tenderness, McBurney's point tenderness, Villatoro's sign - LYMPHATIC Lymphatic: negative: cervical node tenderness - MUSCULOSKELETAL Back Exam: normal inspection, no CVA tenderness, no vertebral tenderness. negative: ecchymosis, swelling, vertebral tenderness - SKIN Integumentary: normal color, warm/dry - NEUROLOGIC Neurologic: intake clinician II-XII nml as tested, grossly normal - PSYCHIATRIC Psych/Mental Status: normal mood/affect, normal thought content, normal thought process Progress - PLAN OF CARE/RESULTS Progress/Plan/Lab Results: Vital Signs - 8 hr 04/04/17 22:20 Temperature 99.2 F Pulse Rate 99 H Respiratory Rate 14 Blood Pressure 156/63 O2 Sat by Pulse Oximetry 98 Orders Category Date Time Status ABDOMEN FLAT/UPRIGHT [RAD] Stat Exams 04/05/17 00:49 Ordered CBC WITH DIFF [HEME] Stat Lab 04/05/17 00:49 Uncollected COMPREHENSIVE METABOLIC PANEL [CHEM] Stat Lab 04/05/17 00:49 Uncollected UA NIMS W/REFLEX CULT [URINALYSIS] Stat Lab 04/05/17 00:49 Uncollected Result Diagrams: 04/05/17 00:59 04/05/17 00:59 - REASSESSMENT Reassessment #1 Time Reassessed: 02:25 (Pt has no pain in the ED, states her pain resolved but waited so long still wanted to be seen. Elevated WBC count, hematuria without other findings. CT Abdomen to r/o other pathology. Pt has negative exam at this time. ) - CT/MRI 1 CT Study: Abdomen, Pelvis Impression: Abnormal CT Results: sigmoid diverticulitis - CONSULTS/PCP/HOSPITALIST Notification #1 *Consult/PCP/Hospitalist*: Martínez Time Discussed: 04:37 Consult Disposition: Will see in ED, Admit - CHANGE OF SHIFT REPORT (ED Provider) Report Given and Care Transferred to:: Dr. Mike Time of Transfer: 02:26 Items Pending: CT/MRI Results (Waiting for CT results and plan/disposition) Departure - Departure Date of Disposition Decision: 04/05/17 Time of Disposition Decision: 04:37 DIAGNOSIS: Sigmoid diverticulitis Disposition: ADMITTED INPATIENT 09 Certified Medical Emergency: Emergent Condition: Good Referrals and Follow-Ups: Allison Jain MD [Primary Care Provider] - - Critical Care Note This patient required my direct & personal management of CC.: No
[2017-04-05 01:35] LABS: URINE CULTURE NEEDED? NO; URINE MICRO REVIEW NEEDED? NO; URINE SOURCE CLEAN CATCH
[2017-04-05 01:35] LABS: MANUAL DIFF NEEDED? NO
[2017-04-05 01:38] LABS: BASO% 0.1 % (0.0-0.8); EOS# 0.05 X1000 (0.0-0.7); EOS% 0.3 % (0.0-10.0); HEMATOCRIT 37.2 % (37.0-47.0); HEMOGLOBIN 12.3 g/dL (12.0-16.0); IMM GRAN# 0.04 X1000 (0.0-0.04); IMM GRAN% 0.2 % (0.0-0.5); LYMPH# 2.79 X1000 (1.2-3.4); LYMPH% 14.8 % (20.5-51.1); MCH 30.9 PG (27-31); MCHC 33.1 g/dL (33-37); MCV 93.5 FL (81-99); MONO# 1.76 X1000 (0.11-0.59); MONO% 9.3 % (1.7-9.3); MPV 11.5 FL (7.4-10.4); NEUT% 75.3 % (42.2-75.2); PLT 301 X1000 (130-400); RBC 3.98 XMIL (4.2-5.4)
[2017-04-05 01:40] LABS: BILIRUBIN URINE NEGATIVE (NEGATIVE); BLOOD URINE MODERATE (NEGATIVE); COLOR YELLOW; GLUCOSE URINE NEGATIVE (NEGATIVE); LEUKOCYTES URINE NEGATIVE (NEGATIVE); NITRITE URINE NEGATIVE (NEGATIVE); PROTEIN URINE NEGATIVE (NEGATIVE); TURBIDITY URINE CLEAR (CLEAR); UR EPITHELIAL CELLS <10 /HPF (<10); URINE BACTERIA NEGATIVE /HPF; URINE RBC <10 /HPF (<10); URINE WBC <10 /HPF (<10); UROBILINOGEN URINE NORMAL (NORMAL)
[2017-04-05 01:58] LABS: AGAP 16; ALBUMIN 4.1 g/dL (3.5-5.0); ALKALINE PHOSPHATASE 55 U/L (32-104); BUN 19 mg/dL (8-22); CALCIUM 9.3 mg/dL (8.8-10.2); CHLORIDE 100 mmol/L (98-107); COSMO 281; GOT 18 U/L (10-30); GPT 6 U/L (10-36); POTASSIUM 3.9 mmol/L (3.5-5.1); SODIUM 139 mmol/L (136-145); TCO2 23 mmol/L (25-35); TOTAL BILIRUBIN 0.68 mg/dL (0.20-1.00); TOTAL PROTEIN 6.8 g/dL (6.3-8.3)
[2017-04-05] MEDS ORDERED: ROCEPHIN 1 GM/NS 1 GM/50 ML IVPB IV ONE (04:37)
[2017-04-05] MEDS ORDERED: FLAGYL 500 MG/NS 500 MG/100 ML IVPB IV ONE (04:37)
--- NOTE | 2017-04-05 06:09 | Diag Imaging Result Doc PS360 ---
EXAM: CT ABD/PELVIS W/ IV CONT ONLY HISTORY: elevated WBC count, blood in urine TECHNIQUE: Dose reduction protocol COMPARISON: None. FINDINGS: Tiny nodular density in the right lower lobe in addition to a calcified granuloma. No calcified gallstones or adjacent inflammation. Normal liver, spleen, pancreas, and adrenal glands. 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 Normal enhancement of the kidneys. No hydronephrosis. No aortic aneurysm. There is wall thickening to the sigmoid colon. There are multiple diverticula in this location. Moderate to prominent adjacent inflammatory changes. No free air. No abscess. Normal appendix. The urinary bladder is only mildly distended. Uterus is been removed. No pelvic mass. IMPRESSION: 1.Sigmoid diverticulitis 2.Hysterectomy 3.A preliminary report was given at 3:45 AM Electronically signed by Pedro Luis Cox 04/05/2017 6:07 AM
[2017-04-05] MEDS ORDERED: ZOFRAN IV PRN (06:44)
--- NOTE | 2017-04-05 06:53 | HISTORY AND PHYSICAL ---
PRIMARY CARE PROVIDER: Harriett Jain MD. CHIEF COMPLAINT: Abdominal pain. HISTORY OF PRESENT ILLNESS: A 76-year-old female who came into the ER after having sharp lower abdominal pain since last night. She stated that she had 1-2 bouts of diarrhea. Did not notice any blood in her stool. The abdominal pain was suprapubic, right lower quadrant and left lower quadrant. It felt very sharp. She felt as if she was having a lot of gas. She denied any kind of chest pain, fever, chills, nausea, and vomiting. She does have a past medical history of hypothyroidism, diabetes mellitus type 2, GERD, hypertension, and hyperlipidemia. A CT scan was obtained in the emergency room which showed sigmoid diverticulitis. She was also noted to have an elevated white blood cell count at 18.87. She will be admitted to the hospital for further evaluation and treatment. PAST MEDICAL HISTORY: 1. Hypertension. 2. Hyperlipidemia. 3. Hypothyroidism. 4. Diabetes mellitus type 2. PREVIOUS SURGICAL HISTORY: 1. Hysterectomy. 2. Orthopedic surgery. FAMILY HISTORY: Mother had Alzheimer's. Otherwise, denied any significant family history. SOCIAL HISTORY: She lives home alone. She has a friend that stays with her sometimes. Denies tobacco, alcohol, or illicit drug use or abuse. HOME MEDICATIONS: 1. Zocor 20 mg p.o. at bedtime. 2. Synthroid 50 mcg p.o. q.a.m. 3. Metformin 1000 mg p.o. b.i.d. 4. Lisinopril 10 mg p.o. q.a.m. 5. Valsartan/hydrochlorothiazide 160/12.5 one p.o. q.a.m. REVIEW OF SYSTEMS: Fourteen point review of systems conducted with the patient. All negative except for listed above in the HPI. PHYSICAL EXAMINATION: VITAL SIGNS: Temperature 97.8 degrees, pulse 88, respirations 18, blood pressure 147/66, oxygen saturation 97% on room air. GENERAL: A 76-year-old female lying on the ER stretcher. Alert and oriented x3. Able to answer all questions appropriately. HEENT: Head is atraumatic, normocephalic. Pupils equal, round, react to light. Extraocular eye movement intact. Sclerae are anicteric. Conjunctivae are pink. Oral mucosa is moist. NECK: Supple. No JVD. No thyromegaly. Trachea is midline. No cervical lymphadenopathy. CARDIAC: S1 and S2 are appreciated. No murmurs, gallops, rubs. Regular rhythm. LUNGS: Clear to auscultation bilaterally. No rhonchi, wheezes, or rales. Symmetrical rise and fall with respirations. ABDOMEN: Soft, nondistended. Diffusely tender. Greatest area of tenderness in the suprapubic and left lower quadrant. No rebound tenderness. No guarding. EXTREMITIES: No clubbing, cyanosis, or edema. There are 2+ pedal pulses. NEUROLOGICAL: Alert and oriented x3. Cranial nerves 2-12 appear to be grossly intact. GENITOURINARY: Patient voids, otherwise deferred. DIAGNOSTIC DATA: CT of the abdomen shows sigmoid diverticulitis. LABORATORY DATA: WBC 18.87, hemoglobin 12.3, hematocrit 37.2, platelet count 301,000. Sodium 139, potassium 3.9, chloride 100, carbon dioxide 23, BUN 19, creatinine 0.9, glucose 123. The urine was noted to have blood in it. ASSESSMENT AND PLAN: 1. Sigmoid diverticulitis. We will start patient on Flagyl and Rocephin. She received her 1st dose in the emergency room. We will continue on the floor. Consult Dr. Meier for gastroenterology. 2. Hypothyroidism. Check TSH. Continue Synthroid. 3. Hyperlipidemia. Continue Zocor. 4. Hypertension. Continue home medications. 5. Diabetes mellitus type 2, on oral antihyperglycemic. Start sliding scale insulin before meals and at bedtime. Do not treat unless fingerstick blood sugar is greater than 200. 6. Hematuria of unknown etiology. The patient is a patient of Dr. Jain. He will see the patient today as we admit for him on night coverage. The patient appears to have had small amounts of blood in her urine on previous studies in November. Again, we will defer treatment to him. 7. Further recommendations per patient's clinical course. Dictated by BUNNY Aguayo for Dany Barba MD cc: BUNNY Aguayo MD Jagan Reddy, MD
[2017-04-05 07:23] LABS: HEMOGLOBIN A1C 5.8 % (4.8-6.0)
--- NOTE | 2017-04-05 08:26 | Diag Imaging Result Doc PS360 ---
EXAM: ABDOMEN FLAT/UPRIGHT HISTORY: diarrhea, gas, abdominal pain earlier today TECHNIQUE: Two views COMPARISON: None. FINDINGS: No free air beneath the diaphragm. No bowel obstruction. No organomegaly. Mild scoliosis with degenerative spine changes. Surgical clips overlie the pelvis. IMPRESSION: Negative exam. Electronically signed by Pedro Luis Cox 04/05/2017 8:24 AM
[2017-04-05] MEDS: HYDROCHLOROTHIAZIDE PO SCH (09:00)
[2017-04-05] MEDS: PRINIVIL PO SCH (09:00)
[2017-04-05] MEDS: NS 1,000 ML IV SCH ×2 (09:00→21:30)
[2017-04-05] MEDS: DIOVAN PO SCH (09:00)
[2017-04-05] MEDS: SYNTHROID PO SCH (09:00)
[2017-04-05] MEDS: FLAGYL 500 MG/NS 500 MG/100 ML IVPB IV SCH ×3 (10:00→21:31)
[2017-04-05] MEDS: HUMALOG SUBQ SCH ×4 (15:17→21:34)
--- NOTE | 2017-04-05 20:05 | PROGRESS NOTE ---
DATE: 04/05/2017 SUBJECTIVE: Patient was seen in the emergency room. Waiting for a bed. Complaints of left lower quadrant pain. Past medical history, past surgical history and medicines were reviewed. PHYSICAL EXAMINATION: Vital Signs: Afebrile. Vitals are stable. 5 feet, 160 pounds. HEENT Examination: Within normal limits. Neck: Supple. No lymphadenopathy. No goiter. Chest: Clear to auscultation. Heart: Sounds are regular. Abdomen: Belly is soft, slightly tender. No signs of peritonitis. Neurological examination: Stable. IMAGING STUDIES: CT scan of the abdomen and pelvis: Sigmoid diverticulitis, hysterectomy. Abdominal x-ray negative. ASSESSMENT AND PLAN: 1. Abdominal pain due to sigmoid diverticulitis. Continue on IV Flagyl. 2. Diet: NPO, IV fluids. 3. Hypothyroidism, on Synthroid. 4. Type 2 diabetes, on sliding scale insulin. 5. Hyperlipidemia, on Zocor. 6. Hypertension, on Diovan and lisinopril. 7. We will adjust his medications. I will go back and review the reports from my office and repeat labs in the morning. GI consult with Dr. Vance. We will follow up. LEVEL OF DOCUMENTATION: 25 minutes. cc: Amari Jain MD
[2017-04-05] MEDS ORDERED: ATIVAN IV ONE (21:16)
[2017-04-05] MEDS: ZOCOR PO SCH ×2 (21:31→21:34)
--- NOTE | 2017-04-05 22:30 | CONSULTATION ---
DATE OF CONSULTATION: 04/05/2017 PRIMARY CARE PHYSICIAN: Harriett Jain M.D. REFERRING PHYSICIAN: Harriett Jain M.D. INDICATION FOR CONSULTATION: Acute diverticulitis. HISTORY OF PRESENT ILLNESS: The patient is a 76-year-old white female, who presented to the emergency room this morning after experiencing sharp left lower quadrant pain last night. She also reports 1-2 episodes of diarrhea. She describes suprapubic pain and bilateral lower quadrant pain. She reports it is sharp and associated with flatus. On CT scan, she was found to have acute sigmoid diverticulitis. Her serum chemistries were unremarkable, but her white count was noted to be 18.87. We are asked to participate in her care. The patient states that she has never had a colonoscopy to her knowledge. PAST MEDICAL HISTORY: 1. Hypertension. 2. Hyperlipidemia. 3. Hypothyroidism. 4. Diabetes 2. PAST SURGICAL HISTORY: 1. Hysterectomy. 2. Orthopedic surgery according to the chart. FAMILY HISTORY: Remarkable for Alzheimer disease. The patient states that she is unaware of anyone who has had a cancer history. SOCIAL HISTORY: Remarkable in that the patient lives alone. She denies tobacco , alcohol or recreational drug use. REVIEW OF SYSTEMS: Remarkable for increased anxiety and agitation after the light was turned out in her room to accommodate her roommate who has a migraine headache. The patient states that she is afraid to be alone and does not ever sleep in the dark at home. She has requested that the light be turned on. She is less agitated since the light was turned on and the nurse is attending to her medical needs. MEDICATION ALLERGIES: Patient has no known medication allergies. HOME MEDICATIONS: 1. Zocor. 2. Synthroid. 3. Metformin. 4. Lisinopril. 5. Valsartan/hydrochlorothiazide. PHYSICAL EXAMINATION: General: On exam, she is anxious, but in no acute distress. Vital signs: Her blood pressure is 134/59, pulse of 87, respiration 18, temperature of 98 degrees. HEENT: Unremarkable. Chest: Clear to auscultation with normal expiratory effort. Cardiovascular: Reveals regular rate and rhythm with no gallops, murmurs, or rubs. Abdominal: Reveals normoactive bowel sounds. The abdomen is soft, but diffusely tender in the suprapubic and left lower quadrant area. There is no rebound or guarding. Extremities: Bilaterally are negative for cyanosis, clubbing, or edema. OBJECTIVE DATA: Reveals a hemoglobin of 12.3 with hematocrit of 37.2, and a white count of 18.87. She has 301,000 platelets. Sodium is 139, potassium 3.9, chloride 100, CO2 of 23, BUN 19, creatinine 0.9 with a glucose of 123. Her calcium is 9.3, total bilirubin 0.68 , AST 18, ALT 6, alkaline phosphatase 55, total protein 6.8 and albumin 4.1. IMPRESSION: Acute sigmoid diverticulitis. RECOMMENDATION: 1. The patient is currently receiving antibiotics. I recommend that she complete a 10-day course of antibiotics. 2. After her antibiotics, she should be scheduled for an outpatient screening colonoscopy to evaluate her colon for the presence of polyps and/or malignancy. 3. I would continue to monitor serial complete blood counts in light of the significant leukocytosis. 4. Additional recommendations to follow based on her clinical course. cc: MD Amari Lau MD MTDD
[2017-04-06] MEDS ORDERED: ATIVAN IM ONE (01:53)
[2017-04-06 06:11] LABS: MANUAL DIFF NEEDED? NO
[2017-04-06 06:19] LABS: BASO% 0.2 % (0.0-0.8); EOS% 1.1 % (0.0-10.0); HEMATOCRIT 34.4 % (37.0-47.0); HEMOGLOBIN 11.2 g/dL (12.0-16.0); LYMPH# 2.22 X1000 (1.2-3.4); LYMPH% 23.5 % (20.5-51.1); MCH 30.4 PG (27-31); MCHC 32.6 g/dL (33-37); MCV 93.2 FL (81-99); MONO# 1.03 X1000 (0.11-0.59); MONO% 10.9 % (1.7-9.3); MPV 11.2 FL (7.4-10.4); NEUT% 64.3 % (42.2-75.2); PLT 273 X1000 (130-400); RBC 3.69 XMIL (4.2-5.4)
[2017-04-06] MEDS ORDERED: GEODON IM ONE (06:30)
[2017-04-06] MEDS ORDERED: STERILE WATER INJ. INJ ONE (06:30)
[2017-04-06 06:49] LABS: AGAP 13; BUN 11 mg/dL (8-22); CALCIUM 8.7 mg/dL (8.8-10.2); CHLORIDE 101 mmol/L (98-107); COSMO 280; POTASSIUM 3.3 mmol/L (3.5-5.1); SODIUM 141 mmol/L (136-145); TCO2 27 mmol/L (25-35)
[2017-04-06] MEDS: HUMALOG SUBQ SCH ×4 (07:38→21:42)
[2017-04-06] MEDS: FLAGYL 500 MG/NS 500 MG/100 ML IVPB IV SCH ×4 (07:38→16:37)
[2017-04-06] MEDS: ROCEPHIN 1 GM/NS 1 GM/50 ML IVPB IV SCH (07:38)
[2017-04-06] MEDS: DIOVAN PO SCH (08:27)
[2017-04-06] MEDS: HYDROCHLOROTHIAZIDE PO SCH (08:27)
[2017-04-06] MEDS: PRINIVIL PO SCH (08:27)
[2017-04-06] MEDS: SYNTHROID PO SCH (08:28)
[2017-04-06] MEDS ORDERED: GEODON IM PRN (14:43)
[2017-04-06] MEDS ORDERED: STERILE WATER INJ. INJ PRN (14:43)
--- NOTE | 2017-04-06 19:48 | PROGRESS NOTE ---
DATE: 04/06/2017 SUBJECTIVE: Patient is agitated, confused last night requiring Ativan and Geodon. She is getting out of the bed. Refusing for fluids. This morning, she is lucid and denies any abdominal pain. PHYSICAL EXAMINATION: Vital Signs: Stable afebrile. HEENT: Within normal limits. Neck: Supple. No lymphadenopathy. Chest: Clear. Heart: Sounds are regular. Abdomen: Belly is soft. Decreased tenderness in the left lower quadrant. No signs of peritonitis. Neurologic: Nonfocal. INVESTIGATIONS: CBC: White cell count 9.4, hematocrit 34, platelet 273,000. SMA7 is normal. Potassium 3.3. ASSESSMENT AND PLAN: 1. Sigmoid diverticulitis, improving on IV antibiotics. 2. Hypokalemia, replace the potassium. 3. Delirium, Ativan or Geodon as needed and we will discuss with Gastroenterology, Dr. Meier, probably outpatient colonoscopy. Hopefully will be discharged home in the morning LEVEL OF DOCUMENTATION: 25 minutes. cc: Amari Jain MD
--- NOTE | 2017-04-06 21:27 | PROGRESS NOTE ---
DATE: 04/06/2017 SUBJECTIVE: The patient states that she is feeling better today. She reports less abdominal pain since she was placed on antibiotics for her acute sigmoid diverticulitis. She states that she is ready to go home. She will discuss with Dr. Jain the need for colonoscopy and let us know when she gets home "if she even wants one at her age". RECOMMENDATIONS: The patient will need an outpatient colonoscopy to determine the cause of her diverticulitis and to rule out secondary causes. I have given the patient our contact information for our office. She is encouraged to call. She should be seen approximately 3- 4 weeks to schedule colonoscopy. cc: MD Amari Lau MD MTDD
[2017-04-06] MEDS: POTASSIUM CHLORIDE 20 MEQ/SWI 20 MEQ/100 ML IVPB IV SCH (22:44)
[2017-04-06] MEDS: ZOCOR PO SCH (22:45)
[2017-04-07] MEDS: POTASSIUM CHLORIDE 20 MEQ/SWI 20 MEQ/100 ML IVPB IV SCH (00:59)
[2017-04-07] MEDS: FLAGYL 500 MG/NS 500 MG/100 ML IVPB IV SCH ×2 (03:09→07:47)
[2017-04-07] MEDS: ROCEPHIN 1 GM/NS 1 GM/50 ML IVPB IV SCH (04:37)
[2017-04-07] MEDS: HUMALOG SUBQ SCH (06:04)
[2017-04-07 08:45] VITALS: BP 157/60
[2017-04-07] MEDS: SYNTHROID PO SCH (09:22)
[2017-04-07] MEDS: DIOVAN PO SCH (09:22)
[2017-04-07] MEDS: HYDROCHLOROTHIAZIDE PO SCH (09:22)
[2017-04-07] MEDS: PRINIVIL PO SCH (09:22)
--- NOTE | 2017-04-08 06:18 | DISCHARGE SUMMARY ---
ADMISSION DATE: 04/05/2017 DISCHARGE DATE: 04/07/2017 DISCHARGING DIAGNOSIS: Abdominal pain due to sigmoid diverticulitis. SECONDARY DIAGNOSES: 1. Hypertension. 2. Hyperlipidemia. 3. Hypothyroidism. 4. Type 2 diabetes. 5. Delirium. CONSULTS: Mee Meier MD BRIEF HISTORY: Please see the H and P that was done by hospitalist. In brief, she is a 76-year- old white female basically admitted to the hospital with abdominal pain, elevated white cell count to 18,000. Upon workup, she was found to have sigmoid diverticulitis. Patient was admitted with IV fluids, IV Flagyl. During the hospital course, she became delirious and requiring some Ativan and Geodon. Followup exam is benign. White cell count came back normal. Afebrile and tolerating the diet very well. Patient was seen by analysis engineer, Mee Meier MD, and we will schedule outpatient colonoscopy. At the time of discharge, the labs as follows CBC: White cell count 9.4, hematocrit 34, platelet 273,000. SMA 7: Sodium 140, potassium 3.3, chloride 101, BUN 11, creatinine 0.8, glucose 92, calcium 8.7. CT scan of the abdomen and pelvis findings are sigmoid diverticulitis, hysterectomy. DISCHARGE INSTRUCTIONS: 1. Zocor 20 mg daily, Synthroid 50 mcg daily, metformin 1000 p.o. b.i.d., lisinopril 10 mg daily, Diovan 160/12.5 daily, Flagyl 500 t.i.d. for 21 days. 2. We will discontinue lisinopril when she comes to my office. 3. Follow up on outpatient colonoscopy in [address] Mee Meier. cc: MD Mee Quiroz MD
== END 2017-04-07 11:25 | disposition home or self-care (01) ==
LOC: ED 22:05 → EDIPHOLD 04-05 06:04 → SUATTDRO 04-05 06:04 → 4N 04-05 14:39
PROVIDERS: ADMIT Internal Medicine; ATTEND Internal Medicine

== ENCOUNTER 2018-11-22 09:56 | Inpatient (IN) ==
[2018-11-22 10:34] LABS: BILIRUBIN URINE NEGATIVE (NEGATIVE); BLOOD URINE 2+ (NEGATIVE); CLARITY CLEAR (CLEAR); COLOR YELLOW; GLUCOSE URINE NEGATIVE (NEGATIVE); KETONE URINE NEGATIVE (NEGATIVE); LEUKOCYTES URINE 1+ (NEGATIVE); NITRITE URINE NEGATIVE (NEGATIVE); PROTEIN URINE TRACE mg/dL (NEGATIVE); UROBILINOGEN URINE NORMAL
[2018-11-22 10:35] LABS: URINE BACTERIA 1+ /HFP; URINE EPITHELIAL CELLS >10 /HPF (<10); URINE SOURCE CLEAN CATCH; URINE WBC <10 /HPF (<10)
--- NOTE | 2018-11-22 10:41 | PROVIDER DOCUMENTATION ---
This chart was entered by Silva Paniagua Scribe, acting as scribe for Jabier Zaragoza CRNP. HPI-General Adult - General Chief Complaint: Flank Pain Stated Complaint: LEFT SIDE PAIN Time Seen by Provider: 11/22/18 10:06 Source: patient Allergies/Adverse Reactions: Patient Allergies Allergy/AdvReac Type Severity Reaction Status Date / Time No Known Allergies Allergy Verified 11/22/18 10:03 Home Medications: Home Medication List Medication Instructions Recorded Confirmed Last Taken Type Levothyroxine [Synthroid] 50 microgm PO QAM 11/28/12 05/06/18 11/20/17 History 50 MICROGM Simvastatin [Zocor] 20 mg PO QHS 11/28/12 05/06/18 11/20/17 History 20 MG Metformin E.r. [Glucophage Xr] 1,000 mg PO BID #0 tablet 12/21/12 05/06/1811/20 Rx 1000 MG Donepezil HCl 5 mg PO DIRECTED 11/20/17 05/06/18 11/20/17 History Omeprazole 20 mg PO DAILY 11/20/17 05/06/18 11/20/17 History Memantine HCl 10 mg PO DAILY 04/28/18 05/06/18 Unknown History - History of Present Illness -Gen Adult Nature of Presenting Problems: 78 yof presents to the ed with c/o left breast pain rad to chest/ribs onset yesterday. pt c/o of not being able to sleep last night and sts pain has improved. Pt. recently drove 12 hours. Location of Pain/Injury: reports: chest (left breast) Pain Radiation: reports: other (left upper ribs) Quality of Pain: reports: sharp, stabbing Severity: reports: mild Onset/Duration: reports: 24 hours ago Timing: reports: improving, intermittent Context/Activities at Onset: reports: light activity Modifying Factors: improves with: nothing Associated Symptoms: reports: chest pain, shortness of breath, other (left rib pain). denies: back/neck pain, cough, dizziness, fever/chills, headaches, nausea, vomiting Similar Symptoms Previously?: No Recently seen or treated by another doctor?: No Review of Systems - Adult - REVIEW OF SYSTEMS - ADULT Constitutional: reports: no symptoms reported Eyes: reports: no symptoms reported Ears, Nose, Mouth & Throat: reports: no symptoms reported Cardiovascular: reports: see HPI, chest pain (left breast), other (left rib pain ) Respiratory: reports: shortness of breath. denies: cough, wheezing Gastrointestinal: reports: no symptoms reported Genitourinary: reports: no symptoms reported Musculoskeletal: reports: see HPI, bone pain (left rib pain) Integumentary: reports: no symptoms reported Neurological: reports: no symptoms reported Psychiatric: reports: no symptoms reported Endocrine: reports: no symptoms reported Hematologic/Lymphatic: reports: no symptoms reported Allergic/Immunologic: reports: no symptoms reported All Other Systems: Reviewed and Negative Past History - Adult - PAST MEDICAL HISTORY-ADULT Review of Records: reports: Old Records Reviewed, Nursing Assessment Review, Medications Reviewed, Social history reviewed & non-contributory. Major Childhood Illnesses: reports: denies history Cardiovascular: reports: HTN, hyperlipidemia Respiratory: reports: denies history Gastrointestinal: reports: GERD Obstetrical/Gynecological: reports: endometriosis, other (cancer) Genitourinary: reports: denies history Musculoskeletal: reports: denies history Neurological: reports: denies history Psychiatric: reports: denies history Endocrine/Immune: reports: Diabetes, thyroid disorder Diabetes Type: Type 2 Other Conditions: reports: cataract/glaucoma - PRIOR SURGERIES/PROCEDURES Surgical/Procedure History: reports: hysterectomy, orthopedic (extremity) - IMMUNIZATION STATUS Childhood Immunizations: See Nurse Assessment Flu Vaccine: See Nurse Assessment - FAMILY HISTORY Family History: reviewed, not pertinent - SOCIAL HISTORY Smoking: denies Substance Use: denies Living Situation: family Physical Exam-General - PHYSICAL EXAM-ADULT Initial Vital Signs Reviewed: Yes - CONSTITUTIONAL General Appearance: appears well, alert, no apparent distress - EYES Eyes: PERRL/EOMI, pink conjunctivae - HEAD, EARS, NOSE, MOUTH & THROAT HENMT: moist mucous membranes, normal ENT inspection - NECK Neck: non-tender, full range of motion, supple, normal inspection - RESPIRATORY Respiratory: chest non-tender, lungs clear, normal breath sounds - CARDIOVASCULAR Cardiovascular: normal peripheral pulses, regular rate, rhythm - CHEST (BREASTS) Chest/Breast: no masses/lumps, tenderness (left breast and rib tenderness with palpation) - GASTROINTESTINAL (ABDOMEN) Abdominal Exam: normal bowel sounds, non tender, soft - LYMPHATIC Lymphatic: no adenopathy - MUSCULOSKELETAL Back Exam: normal inspection, no CVA tenderness, no vertebral tenderness Extremity: normal range of motion, non-tender, normal gait, normal inspection - SKIN Integumentary: normal color, normal turgor, warm/dry - NEUROLOGIC Neurologic: grossly normal, no motor/sensory deficits - PSYCHIATRIC Psych/Mental Status: normal mood/affect, normal thought content, normal thought process, oriented x 3 Progress - PLAN OF CARE/RESULTS Progress/Plan/Lab Results: Vital Signs - 8 hr 11/22/18 09:58 Temperature 97.9 F Pulse Rate 82 Respiratory Rate 18 Blood Pressure 165/74 O2 Sat by Pulse Oximetry 97 Orders Category Date Time Status URINALYSIS PL W/POSS RFLX CULT [URINALYSIS] Stat Lab 11/22/18 10:09 Received Laboratory Tests 11/22/18 11/22/18 11/22/18 10:09 11:30 11:30 WBC 10.47 RBC 4.22 Hgb 12.7 Hct 39.9 MCV 94.5 MCH 30.1 MCHC 31.8 L RDW Std Deviation 12.9 Plt Count 225 MPV 10.8 H Immature Gran % (Auto) 0.2 Neut % (Auto) 62.6 Lymph % (Auto) 25.9 [place] % (Auto) 9.2 Eos % (Auto) 1.8 Baso % (Auto) 0.3 Immature Gran # (Auto) 0.02 Neut # (Auto) 6.56 H Lymph # (Auto) 2.71 [place] # (Auto) 0.96 H Eos # (Auto) 0.19 Baso # (Auto) 0.03 PT INR PTT (Actin FS) D-Dimer, Quantitative Sodium 145 Potassium 4.3 Chloride 110 H Carbon Dioxide 25 Anion Gap 10 BUN 19 Creatinine 0.9 Estimated GFR/1.73 m2 60 BUN/Creatinine Ratio 21 Glucose 93 Calculated Osmolality 291 Calcium 9.4 Total Bilirubin 0.90 AST 18 ALT 6 L Alkaline Phosphatase 77 Creatine Kinase 48 Troponin T Total Protein 6.5 Albumin 3.9 Globulin 3.0 Albumin/Globulin Ratio 2.0 Urine Source CLEAN CATCH Urine Color YELLOW Urine Clarity CLEAR Urine pH 5.0 Ur Specific [place] 1.020 Urine Protein TRACE A Urine Ketones NEGATIVE Urine Blood 2+ A Urine Nitrite NEGATIVE Urine Bilirubin NEGATIVE Urine Urobilinogen NORMAL Urine Microscopic RBC 10-20 A Urine WBC 1+ A Urine Microscopic WBC <10 Ur Epithelial Cells >10 A Urine Bacteria 1+ Urine Glucose NEGATIVE 11/22/18 11/22/18 11/22/18 11:30 11:30 11:30 WBC RBC Hgb Hct MCV MCH MCHC RDW Std Deviation Plt Count MPV Immature Gran % (Auto) Neut % (Auto) Lymph % (Auto) [place] % (Auto) Eos % (Auto) Baso % (Auto) Immature Gran # (Auto) Neut # (Auto) Lymph # (Auto) [place] # (Auto) Eos # (Auto) Baso # (Auto) PT 13.6 INR 0.99 PTT (Actin FS) 31.5 D-Dimer, Quantitative 1.69 H Sodium Potassium Chloride Carbon Dioxide Anion Gap BUN Creatinine Estimated GFR/1.73 m2 BUN/Creatinine Ratio Glucose Calculated Osmolality Calcium Total Bilirubin AST ALT Alkaline Phosphatase Creatine Kinase Troponin T < 0.010 Total Protein Albumin Globulin Albumin/Globulin Ratio Urine Source Urine Color Urine Clarity Urine pH Ur Specific [place] Urine Protein Urine Ketones Urine Blood Urine Nitrite Urine Bilirubin Urine Urobilinogen Urine Microscopic RBC Urine WBC Urine Microscopic WBC Ur Epithelial Cells Urine Bacteria Urine Glucose Discussed results and plan of care with patient. Patient agrees with plan and verbalizes understanding. Result Diagrams: 11/22/18 11:30 11/22/18 11:30 - REASSESSMENT Reassessment #1 Time Reassessed: 11:47 Status: unchanged Reassessment #2 Time Reassessed: 13:30 Status: improving - EKG 1 Time of EKG reading by physician:: 11:46 EKG Read and Signed by:: Pablo Vines EKG Interpretation (*Must complete 3 of following elements*): Abnormal Rate: 80 Rhythm: nsr [place]: normal QRS: LVH ME Interval: normal ST Wave: normal Comments: prolonged QT - XRAY 1 XRAY: Bilateral XRAY Study: Chest (EXAM: CHEST-2 VIEWS - 11/22/2018 HISTORY: SOB TECHNIQUE: Chest two views COMPARISON: 05/06/2018 FINDINGS: Heart size is normal. There is mild tortuosity of the thoracic aorta. The lungs appear clear. There is possibly a tiny left pleural effusion. There is no pneumothorax identified. IMPRESSION: Possible tiny left pleural effusion. No evidence of pneumonia. No pneumothorax. Electronically signed by Eliecer Stringer 11/22/2018 11:19 AM 11/22/18 1119 Interpreting Physician: Eliecer Stringer MD Dictated Date /Time: 11/22/18 1117 cc: Jabier Zaragoza; Ivan Rodriguez MD) XRAY Interpretation: See note - CT/MRI 1 CT Study: Angiogram (EXAM: CT ANGIOGRM PULMONARY ARTERIES INDICATION: SOB/ Elevated D-dimer TECHNIQUE: This exam was performed using automated exposure control, adjustment of mA or kV according to patient size, and/or use of iterative reconstruction technique. Thin section axial images and 3-D MIPS were obtained. COMPARISON: 11/20/2017 FINDINGS: There are small filling defects seen in the second and higher order branches of the right pulmonary artery leading to the right lower lobe consistent with acute pulmonary emboli. The clot burden is light. There is no evidence of aortic dissection or aneurysm. There is no cardiomegaly. There are a few calcified right hilar lymph nodes indicating prior granulomatous disease. There are a couple of tiny calcified granulomata in the right lower lung zone. There is no evidence of pulmonary infarct. No airspace consolidations are appreciated. There is trace subsegmental atelectasis at the lung bases. There is no pleural fluid collection and no pneumothorax. Limited views of the upper abdomen are essentially unremarkable. IMPRESSION: A few small acute pulmonary emboli on the right leading to the right lower lobe with a light clot burden as detailed above. The findings were discussed with Dr. Vines in the emergency department at 11/22/2018 1:22 PM and was acknowledged. Electronically signed by Robert Jarquin 11/22/2018 1:22 PM 11/22/18 1322 Interpreting Physician: Robert Jarquin MD Dictated Date/Time: 11/22/18 1314 cc: Jabier Zaragoza; Ivan Rodriguez MD) CT Results: See note - CONSULTS/PCP/HOSPITALIST Notification #1 *Consult/PCP/Hospitalist*: Dr. Rodriguez Time Discussed: 14:30 Reason/Comments: Admit Consult Disposition: Admit Departure - Departure Date of Disposition Decision: 11/22/18 Time of Disposition Decision: 14:35 DIAGNOSIS: Pulmonary embolism Qualifiers: Pulmonary embolism type: unspecified Chronicity: acute Acute cor pulmonale presence: without acute cor pulmonale Qualified Code(s): I26.99 - Other pulmonary embolism without acute cor pulmonale Disposition: ADMITTED INPATIENT 09 Certified Medical Emergency: Emergent Condition: Stable Referrals and Follow-Ups: Ivan Rodriguez MD [Primary Care Provider] - - Critical Care Note This patient required my direct & personal management of CC.: Yes Total Time (mins): 39 Critical Care Statement: This patient required my direct personal management to treat or rule out processes, the absence of which, could potentiallly result in sudden, clinically significant life or limb threatening deterioration. Attestation - Physician/ KIAN Attestation Patient care was provided by Advanced Practice Provider:: Yes Advanced Practice Provider:: Jabier Zaragoza Advanced Practice Provider documentation review:: The Mid-level provider documentation, treatment plan and medical decision making was reviewed by the physician who agrees with all treatment and medical decision making by the MLP. The physician spent face to face time with patient:: No Advanced Practice Provider documentation review:: Supervising physician onsite and consulted in the evaluation and care of this patient. The physician did not have a face to face encounter with the patient. This chart was documented by the indicated scribe, (Silva Paniagua Scribe) and accurately reflects the services I performed and decisions made by me, Jabier Zaragoza CRNP, as attested by the provider's signature.
--- NOTE | 2018-11-22 11:21 | Diag Imaging Result Doc PS360 ---
EXAM: CHEST-2 VIEWS - 11/22/2018 HISTORY: SOB TECHNIQUE: Chest two views COMPARISON: 05/06/2018 FINDINGS: Heart size is normal. There is mild tortuosity of the thoracic aorta. The lungs appear clear. There is possibly a tiny left pleural effusion. There is no pneumothorax identified. IMPRESSION: Possible tiny left pleural effusion. No evidence of pneumonia. No pneumothorax. Electronically signed by Eliecer Stringer 11/22/2018 11:19 AM
[2018-11-22 11:47] LABS: BASO# 0.03 X1000 (0.0-0.2); BASO% 0.3 % (0.0-0.8); EOS# 0.19 X1000 (0.0-0.7); EOS% 1.8 % (0.0-10.0); HEMATOCRIT 39.9 % (37.0-47.0); HEMOGLOBIN 12.7 g/dL (12.0-16.0); IMM GRAN# 0.02 X1000 (0.0-0.04); IMM GRAN% 0.2 % (0.0-0.5); LYMPH# 2.71 X1000 (1.2-3.4); LYMPH% 25.9 % (20.5-51.1); MCH 30.1 PG (27-31); MCHC 31.8 g/dL (33-37); MCV 94.5 FL (81-99); MONO# 0.96 X1000 (0.11-0.59); MONO% 9.2 % (1.7-9.3); MPV 10.8 FL (7.4-10.4); NEUT# 6.56 X1000 (1.4-6.5); NEUT% 62.6 % (42.2-75.2); PLT 225 X1000 (130-400); RBC 4.22 XMIL (4.2-5.4); RDW 12.9 % (11.5-14.5); WBC 10.47 X1000 (4.8-10.8)
[2018-11-22 12:11] LABS: ALBUMIN 3.9 g/dL (3.5-5.0); CALCIUM 9.4 mg/dL (8.8-10.2); CREATININE 0.9 mg/dL (0.5-0.9); POTASSIUM 4.3 mmol/L (3.5-5.1); TOTAL BILIRUBIN 0.9 mg/dL (0.20-1.00); TOTAL PROTEIN 6.5 g/dL (6.3-8.3)
--- NOTE | 2018-11-22 12:24 | EKG Report ---
Test Performed on : 11/22/2018 11:41:31 AM Test Reason : SOB Blood Pressure : / mmHG Vent. Rate : 080 BPM Atrial Rate : 080 BPM P-R Int : 156 ms QRS Dur : 082 ms QT Int : 430 ms P-R-T Axes : 041 -10 001 degrees QTc Int : 495 ms Normal sinus rhythm. Minimal voltage criteria for LVH, may be normal variant Prolonged QT Abnormal ECG When compared with ECG of 06-MAY-2018 01:45, (Unconfirmed) Criteria for Septal infarct are no longer present Unconfirmed Result
--- NOTE | 2018-11-22 13:24 | Diag Imaging Result Doc PS360 ---
EXAM: CT ANGIOGRM PULMONARY ARTERIES INDICATION: SOB/Elevated D-dimer TECHNIQUE: This exam was performed using automated exposure control, adjustment of mA or kV according to patient size, and/or use of iterative reconstruction technique. Thin section axial images and 3-D MIPS were obtained. COMPARISON: 11/20/2017 FINDINGS: There are small filling defects seen in the second and higher order branches of the right pulmonary artery leading to the right lower lobe consistent with acute pulmonary emboli. The clot burden is light. There is no evidence of aortic dissection or aneurysm. There is no cardiomegaly. There are a few calcified right hilar lymph nodes indicating prior granulomatous disease. There are a couple of tiny calcified granulomata in the right lower lung zone. There is no evidence of pulmonary infarct. No airspace consolidations are appreciated. There is trace subsegmental atelectasis at the lung bases. There is no pleural fluid collection and no pneumothorax. Limited views of the upper abdomen are essentially unremarkable. IMPRESSION: A few small acute pulmonary emboli on the right leading to the right lower lobe with a light clot burden as detailed above. The findings were discussed with Dr. Vines in the emergency department at 11/22/2018 1:22 PM and was acknowledged. Electronically signed by Robert Jarquin 11/22/2018 1:22 PM
[2018-11-22] MEDS ORDERED: PROTONIX IV ONE (14:07)
[2018-11-22] MEDS ORDERED: LOVENOX 1 MG/KG SUBQ ONE (14:07)
[2018-11-22] MEDS ORDERED: SODIUM CHLORIDE 0.9% INJ ONE (14:07)
[2018-11-22] MEDS ORDERED: LOVENOX ONE (14:17)
[2018-11-22 14:18] LABS: INR 0.99; PROTIME 13.6 Seconds (11.0-16.0)
[2018-11-22 14:19] LABS: PTT 31.5 Seconds (22.3-41.8)
[2018-11-22] MEDS ORDERED: ZOFRAN IV PRN (14:37)
[2018-11-22] MEDS: LOVENOX SUBQ SCH (21:08)
[2018-11-22] MEDS: MORPHINE IV PRN (23:14)
[2018-11-23] MEDS: MORPHINE IV PRN (03:16)
[2018-11-23 03:47] VITALS: BP 166/82
[2018-11-23] MEDS: LOVENOX SUBQ SCH (09:37)
--- NOTE | 2018-11-23 16:02 | HISTORY AND PHYSICAL ---
CHIEF COMPLAINT: Left-sided flank pain. HISTORY OF PRESENT ILLNESS: The patient is an 78-year-old female who unfortunately has known history of dementia. She has recently moved to [place], [place] and is being cared for there by her son and her grandson. She apparently came back to [place] for legal reasons to sign some paperwork. She was brought back by her son and grandson. After having been here a day or 2 she started having some left-sided abdominal pain and therefore, was brought to the ER. She was also complaining of pain in her ribs and chest, not being able to sleep. They had driven the entire 12 hours without a break. ALLERGIES: No known drug allergies. MEDICATIONS: Synthroid 50, Zocor 20, metformin 1000, although zonia notes that this has recently been stopped, Aricept 5, omeprazole, and Namenda 10. REVIEW OF SYSTEMS: Difficult to obtain from Ms. Kilgore herself due to her dementia, although the family denies any recent injuries, she does have left rib pain but this has been going on for quite some time. She has had left-sided chest pain in the past. She denied any recent nausea, fevers, chills, cough, congestion, denied any recent infections or illness. No GI or issues. The patient still states that she is fine, and she is not really sure why she is at the hospital. PAST MEDICAL HISTORY: Significant for hypertension, hyperlipidemia, reflux, endometriosis, history of cancer, I believe it was breast cancer, history of diabetes, hypothyroidism, dementia, and has had a hysterectomy. SOCIAL HISTORY: She is . She does not smoke nor drink. She, as noted, has recently moved to [place] to be cared for by her family. PHYSICAL EXAMINATION: VITAL SIGNS: Temp 97.9. Pulse 82. Respiratory rate 10. BP 165/74. Sat 97% on room air. GENERAL: The patient is awake, alert, very pleasant to talk with in no current respiratory distress. HEENT: Normocephalic, atraumatic. GENE. NECK: Supple. No JVD. CARDIOVASCULAR: Regular rate. No murmurs. CHEST: Clear and nonlabored. No crackles. No wheezing. ABDOMEN: Soft, nondistended. EXTREMITIES: Moves all extremities. NEUROLOGIC: No focal changes. SKIN: Warm and dry. No rashes. LABORATORY: CBC reveals WBC 10. CT demonstrates bilateral small pulmonary emboli with a tiny left pleural effusion. D-dimer was noted to be elevated. So, they checked a CT, which demonstrates small acute pulmonary emboli on the right. ASSESSMENT: 1. Right-sided pulmonary emboli. 2. Left-sided chest wall pain that appears to be chronic. 3. Dementia. 4. Diabetes. 5. Others. PLAN: 1. We will admit the patient to the hospital. 2. Place her on Lovenox until we can ascertain if her insurance will pay for Xarelto or Eliquis. 3. We will follow. cc: Ivan Rodriguez MD
--- NOTE | 2018-11-23 19:09 | DISCHARGE SUMMARY ---
ADMISSION DATE: 11/22/2018 DISCHARGE DATE: 11/23/2018 DISCHARGE DIAGNOSES: 1. Right-sided small pulmonary emboli. 2. Hypothyroidism. 3. Diabetes. 4. Dementia. CONSULTATIONS: None. PROCEDURES: None. BRIEF HOSPITAL COURSE: The patient is an 78-year-old female who presented to the emergency department with left-sided flank pain and chest wall pain. She was not hypoxic. She had had a recent 12-hour trip from [place] to [place] and had an elevated d-dimer. Therefore, a CT was done which demonstrated a pulmonary emboli. She was placed in the hospital and placed on Lovenox. Interestingly, the patient already apparently was supposed to be on Xarelto as the pharmacy notes that she is not due another refill for 10 days. However, the son nor the grandson did not know that she was on Xarelto. Therefore, she has not been taking it. DISPOSITION: The patient thankfully had an uneventful hospital course. She should not be considered a failure of Xarelto as she has not been on it for the past two months according to the grandson who gives her her medications every day. We will place her on a treatment dose of Xarelto at 15 mg twice daily and will discharge her home. She will continue all of her other home medications as listed. TIME: Greater than 30 minutes was spent in discharge care, following up with pharmacy to make sure that she can get her prescriptions. cc: Ivan Rodriguez MD
== END 2018-11-23 12:39 | disposition home or self-care (01) | DRG 176 ==
LOC: P.ED 09:56 → P.MEDSURG 15:08
PROVIDERS: ADMIT Family Medicine; ATTEND Family Medicine
CPT/HCPCS: 71020; 71046; 71275; 80053; 81001; 82550; 84484; 85025; 85379; 85610; 85730; 87088; 93005; 96372; 96374; 99285; C9113; J1650; J2270; Q9967; S0164